=== PATIENT | male | born 2005 | race Caucasian/White ===

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

== ENCOUNTER 2024-01-02 10:03 | Outpatient (CLI) | payer BC, SELFPAY ==
[2024-01-03 10:58] LABS: Hemoglobin S Screen Negative (Negative)
== END 2024-01-02 10:04 | disposition home or self-care (01) ==
LOC: LOS 10:04
PROVIDERS: PCP Nurse Practitioner Family; Visit Provider Nurse Practitioner Family
DX: Z02.5 Encounter for examination for participation in sport (principal); R01.1 Cardiac murmur, unspecified
CPT/HCPCS: 36415; 85660

== ENCOUNTER 2024-01-04 02:04 | Outpatient (CLI) | payer BC, SELFPAY ==
--- NOTE | 2024-01-04 06:45 | DI.US_ITS ---
APPROVED REPORT EXAM: Comprehensive 2D, Doppler, and color-flow Echocardiogram Patient Location: Out-Patient Bench Technician: Kaylen Snow RDCS (AE) Indications: Evaluate new murmur, Cardiac murmur Other Information Study Quality: Good Conclusion Normal left ventricular wall thickness and chamber size. Ejection fraction is 60 to 65%. Wall motio n is normal Normal right ventricular size and function Both atria are normal in size There is no structural or hemodynamically significant valvular disease Wall motion Left Ventricle The left ventricle is normal size. The left ventricular systolic function is normal. The left ventric ular ejection fraction is within the normal range. Bradycardia throughout exam. There is normal left ventricular wall thickness. There is normal LV segmental wall motion. There is no ventricular septal defect visualized. LVEF is 60-65%. Right Ventricle The right ventricle is normal size. The right ventricular systolic function is normal. Atria The left atrium size is normal. The right atrium size is normal. The interatrial septum is intact wit h no evidence for an atrial septal defect. Aortic Valve The aortic valve is normal in structure. Aortic valve is trileaflet. There is no aortic valvular sten osis. No aortic regurgitation is present. Mitral Valve The mitral valve is normal in structure. No evidence of mitral valve stenosis. Trace mitral regurgita tion. Tricuspid Valve The tricuspid valve is normal in structure. There is no tricuspid valve stenosis. Trace tricuspid reg urgitation. Unable to assess PA pressure. Pulmonic Valve The pulmonary valve is normal in structure. There is no pulmonic valvular stenosis. Trace pulmonic re gurgitation. Great Vessels The aortic root is normal in size. The ascending aorta is normal in size. Aortic arch is normal in ca liber. IVC is normal in size and collapses >50% with inspiration. Pericardium There is no pericardial effusion. 2D Dimensions IVSD d PLAX 0.90 cm M: 0.6-1.2 Ao Root d 2.74 cm M: 3.1 - 3.7 LVPW d PLAX 0.92 cm M: 0.6 - 1.2 Ao Asc Diam d 2.52 cm M: 2.6 - 3.4 LVID d PLAX 5.03 cm M: 4.2 - 5.8 LVDs 3.41 cm M: 2.5 - 4.0 LV EF Teichholz 60.3 % FS 32.28 % LV EDV (Teich) 120.1 mL LV ESV (Teich) 47.7 mL M-Mode TAPSE 2.57 cm (M/F) >1.7 Auto EF LV EDV A4C 130.0 mL LV EDV A2C 172.2 mL LV EDV BP 150.7 mL LV ESV A4C 53.6 mL LV ESV A2C 68.5 mL LV ESV BP 61.5 mL LVEF(%) A4C 58.8 % LVEF(%) A2C 60.2 % LVEF(%) BP 59.2 % LV SV A4C 76.4 ml LV SV A2C 103.7 ml LV SV BP 89.2 ml LV CO A4C 3.2 L/min LV CO A2C 3.9 L/min LV CO BP 3.5 L/min HR A4C 42.36 BPM HR A2C 37.15 BPM LV EDV Index (BP) LA Volume LA Length A4C 5.6 cm LA Length A2C 5.0 cm LA Area A4C s 19.01 cm2 LA Area A2C s 18.81 cm2 LA Vol A4C A-L 55.13 mL LA Vol A2C A-L 60.02 mL LA Vol Biplane A-L 60.7 mL LA Vol/BSA A4C A-L LA Vol/BSA A2C A-L LA Vol/BSA BP A-L 31.6 mL/m2 LA Vol A4C MOD 50.6 mL LA Vol A2C MOD 53.2 mL LA Vol BP MOD 54.7 mL RA Volume RA Area A4C 13.7 cm2 RA ESV A4C (A-L) 37.2mL RA Vol/BSA A4C A-L RA Length A4C 4.3 cm RA ESV A4C (MOD) 35.4mL LV Diastology MV E' medial 0.159 (>0.07 m/s) MV E Vmax 0.96 (0.4-1.3 m/s) MV E/E' MED 6.01 (<14) MV A Vmax 0.60 (0.4-1.3 m/s) MV E' lateral 0.200 (>0.1 m/s) E/A Ratio 1.6 MV E/E' LAT 4.77 (<14) MV E' Average 0.180 m/s MV E/E'(average) 5.32 Aortic Valve AoV Vmax 1.37 m/s LVOT Vmax 1.25 m/s AoV Peak Grad 7.5 mmHg LVOT Peak Grad 6.2 mmHg AoV Area (Vmax) 3.20 cm2 LVOT VTI 0.274 m AoV VTI 0.307 m LVOT Mean Grad 3.0 mmHg AoV Mean Karthik. 0.93 m/s LVOT SV 96.27 mL AoV Mean Grad 4.0 mmHg LVOT Diam s 2.10 cm AoV Area (VTI) 3.14 cm2 AV Regurg Peak Gr. 7.54 mmHg Velocity Ratio 0.91 Mitral Valve MV DT 244 (160-240 msec) MV Vmax TIPS 0.96 m/s MV Mean Grad 0.9 (<2mmHg) MV VTI 0.380 m Pulmonary Valve PV Vmax 1.37 (0.5-1.5 m/s) RVOT Vmax 1.16 m/s PV Peak Grad 7.5 mmHg RVOT Peak Gr. 5.3 mmHg PV Mean Karthik 0.99 m/s RVOT VTI 0.287 m PV Mean Grad 4.4 mmHg RVOT Mean Gr. 2.9 mmHg Tricuspid Valve TV S' 0.17 m/s
== END 2024-01-04 02:24 ==
LOC: DI 02:05
PROVIDERS: PCP Nurse Practitioner Family; Visit Provider Nurse Practitioner Family
DX: R01.1 Cardiac murmur, unspecified (principal)
CPT/HCPCS: 93306